=== PATIENT | male | born 1995 | race Caucasian/White ===

== ENCOUNTER 2018-12-08 19:09 | Emergency (ER) | payer MEDICAID, OTHER ==
[~2018-12-08] VITALS: Ht 170.2 cm; Wt 77.7 kg
[2018-12-08 19:16] VITALS: BP 149/86; PULSE 93; RESP 18; Ht 170.2 cm; Wt 77.7 kg
[2018-12-08] MEDS ORDERED: IBUP800T48 PO (20:29)
--- NOTE | 2018-12-08 20:41 | ERD ---
ER Documentation Chief Complaint Chief Complaint L 5TH TOE PAIN X'S 3 DAYS HPI 23-year-old male presenting with toe pain for 3 days. Patient states that he dropped a box on his toe and he has left pinky toe pain. He denies any numbness or tingling. He has pain with walking. Pushed pus out of his toe earlier. Den ies other medical problems. NKDA. Surgical history denies. Social history denies ROS All systems reviewed and are negative except as per history of present illness. Medications Home Meds Active Scripts Ibuprofen* (Motrin*) 800 Mg Tab, 800 MG PO Q6, #30 TAB Prov:QASIM PEREZ PA-C 12/08/18 Allergies Allergies: Coded Allergies: No Known Allergy (Unverified , 12/08/18) PMhx/Soc Medical and Surgical Hx: pt denies Medical Hx, pt denies Surgical Hx Hx Alcohol Use: Yes (SOCIALLY ) Hx Substance Use: No Hx Tobacco Use: No Smoking Status: Never smoker FmHx Family History: No diabetes, No coronary disease, No other Physical Exam Vitals Vital Signs Date Temp Pulse Resp B/P (MAP) Pulse Ox O2 O2 Flow FiO2 Time Delivery Rate 12/08/18 98.9 93 18 149/86 99 19:16 (107) Physical Exam GENERAL: The patient is well-appearing, well-nourished, in no acute distress CHEST: Clear to auscultation bilaterally. There are no rales, wheezes or rhonchi. HEART: Regular rate and rhythm. No murmurs, clicks, rubs or gallops. EXTREMITIES: To palpation of the left toe. Normal range of motion. Strength 5 out of 5. Pulses intact. Cap refill less than 2 seconds NEUROLOGIC: Alert and oriented. Cranial nerves II through XII intact. Motor strength in all 4 extremities with 5 out of 5 strength. Sensation grossly intact. SKIN: Noted to the left fifth toe. No surrounding erythema or fluctuance. No warmth or swelling. Procedures/MDM DIAGNOSTIC IMAGING REPORT Patient: IRON ARAUJO : 1995 Age: 23 Sex: M MR #: [id number] DOS: 12/08/18 193 Ordering MD: HILLARY PEREZ PA-C Location: [facility] Room/Bed: PROCEDURE: DX Toe CLINICAL INDICATION: Left fifth toe pain. TECHNIQUE: Three views. COMPARISON: None FINDINGS: No fractures are noted. The proximal and distal phalanx of the fifth toe have fused. No erosions are identified. The soft tissues are unremarkable.. IMPRESSION: Negative exam. ER Course: Ortho shoe applied in ED MDM: 23-year-old male presenting with left fifth toe pain. I have low suspicion for acute fracture dislocation. I have low suspicion for infectious etiology. Patient is told to clean with soap and water and apply warm compresses. He is recommended to apply antibiotic ointment given he did have a history of purulence removed from the toe earlier today. Patient is told symptoms change or worsen to return immediately to the ER. All questions answered at discharge Departure Diagnosis: Primary Impression: Toe contusion Condition: Stable Patient Instructions: Contusion, Foot Referrals: [facility] YOU HAVE RECEIVED A MEDICAL SCREENING EXAM AND THE RESULTS INDICATE THAT YOU DO NOT HAVE A CONDITION THAT REQUIRES URGENT TREATMENT IN THE EMERGENCY DEPARTMENT. FURTHER EVALUATION AND TREATMENT OF YOUR CONDITION CAN WAIT UNTIL YOU ARE SEEN IN YOUR DOCTORS OFFICE WITHIN THE NEXT 1-2 DAYS. IT IS YOUR RESPONSIBILITY TO MAKE AN APPOINTMENT FOR FOLOW-UP CARE. IF YOU HAVE A PRIMARY DOCTOR --you should call your primary doctor and schedule an appointment IF YOU DO NOT HAVE A PRIMARY DOCTOR YOU CAN CALL OUR PHYSICIAN REFERRAL HOTLINE AT IF YOU CAN NOT AFFORD TO SEE A PHYSICIAN YOU CAN CHOSE FROM THE FOLLOWING [facility] [id number] [facility]. [facility] [address] [facility] [facility] [address] [facility] [facility] [address] [facility] [facility] [address] [facility]. [facility]. [address] Additional Instructions: FOLLOW UP WITH YOUR PRIMARY CARE PHYSICIAN TOMORROW.Return to this facility if you are not improving as expected. QASIM PEREZ PA-C Dec 08, 2018 20:41
== END 2018-12-08 20:45 | disposition home or self-care (01) ==
LOC: FTE 19:09
DX: S90.122A Contusion of left lesser toe(s) without damage to nail, initial encounter (principal); W20.8XXA Other cause of strike by thrown, projected or falling object, initial encounter; Y92.9 Unspecified place or not applicable
CPT/HCPCS: 73660; Z7502